=== PATIENT | male | born 1985 | race African-American/Black ===

== ENCOUNTER 2017-02-19 20:38 | Emergency (ER) | payer MEDICAID ==
[~2017-02-19] VITALS: Ht 170.2 cm; Wt 98.0 kg
[2017-02-19] MEDS ORDERED: KETOROLAC 30MG/ML VIAL IM ONE (21:15)
[2017-02-19] MEDS ORDERED: METHOCARBAMOL 500MG TABLET PO ONE (21:15)
[2017-02-19 23:55] VITALS: BP 96/62
== END 2017-02-20 00:23 | disposition home or self-care (01) ==
LOC: ER 20:49
DX: S39.012A Strain of muscle, fascia and tendon of lower back, initial encounter (principal); M41.9 Scoliosis, unspecified; F17.200 Nicotine dependence, unspecified, uncomplicated; F12.10 Cannabis abuse, uncomplicated; W01.0XXA Fall on same level from slipping, tripping and stumbling without subsequent striking against object, initial encounter; Y93.89 Activity, other specified; Y99.8 Other external cause status; Y92.89 Other specified places as the place of occurrence of the external cause; Z98.890 Other specified postprocedural states
CPT/HCPCS: 72100; 96372; 99284; J1885

== ENCOUNTER 2024-06-28 14:21 | Emergency (ER) | payer MEDICAID, OTHER ==
[~2024-06-28] VITALS: Ht 175.3 cm; Wt 118.0 kg
[2024-06-28 14:27] VITALS: TEMP 37; O2SAT 99
[2024-06-28] MEDS ORDERED: DEXT15DR5 EACHEYE (15:28)
[2024-06-28] MEDS ORDERED: VALA10002 MT (15:28)
[2024-06-28 15:53] VITALS: BP 139/89; PULSE 105; RESP 23; O2SAT 99
== END 2024-06-28 16:00 | disposition home or self-care (01) ==
LOC: ER 14:21
DX: G51.0 Bell's palsy (principal); E11.9 Type 2 diabetes mellitus without complications; F15.90 Other stimulant use, unspecified, uncomplicated; F17.200 Nicotine dependence, unspecified, uncomplicated; I10 Essential (primary) hypertension; Z79.624 Long term (current) use of inhibitors of nucleotide synthesis
CPT/HCPCS: 82962; 99283